=== PATIENT | male | born 1955 ===

== ENCOUNTER 2017-05-27 10:46 | Outpatient (CLI) | payer OTHER ==
[2017-05-27 19:26] LABS: HEMOGLOBIN A1C 0.58 g/dL
[2017-05-27 19:27] LABS: ALBUMIN/GLOBULIN RATIO 1.5 (1.0-2.2); BILIRUBIN,TOTAL 0.7 mg/dL (0.2-1.0); BUN - BLOOD UREA NITROGEN 14 mg/dL (6-20); CALCIUM 9.5 mg/dL (8.5-10.3); CARBON DIOXIDE - CO2 28 mmol/L (21-32); CHLORIDE 103 mmol/L (101-111); CHOL/HDL RATIO 6.1 (<5.0); CHOLESTEROL 206 mg/dL; GFR - MDRD 75 (>89); GLUCOSE 86 mg/dL (70-100); HDL CHOLESTEROL 34 mg/dL; POTASSIUM 3.9 mmol/L (3.5-5.0); SODIUM 140 mmol/L (135-145); TOTAL PROTEIN 7.1 g/dL (6.7-8.2); TRIGLYCERIDES 176 mg/dL; VLDL CHOLESTEROL 35 mg/dL
[2017-05-27 19:42] LABS: BASOPHILS % (AUTO) 0.7 %; EOSINOPHILS # (AUTO) 0.1 10^3/uL (0.0-0.7); EOSINOPHILS % (AUTO) 1.3 %; HCT - HEMATOCRIT 43.6 % (42.0-52.0); HGB - HEMOGLOBIN 14.6 g/dL (14.0-18.0); LYMPHOCYTES # (AUTO) 2.3 10^3/uL (1.5-3.5); LYMPHOCYTES % (AUTO) 36.1 %; MEAN CORPUSCULAR HEMOGLOBIN 31.9 pg (27.0-31.0); MEAN CORPUSCULAR HGB CONC 33.5 g/dL (32.0-36.0); MEAN PLATELET VOLUME 9.5 fL (7.4-11.4); MONOCYTES # (AUTO) 0.4 10^3/uL (0.0-1.0); MONOCYTES % (AUTO) 6.4 %; NEUTROPHILS # (AUTO) 3.5 10^3/uL (1.5-6.6); NEUTROPHILS % (AUTO) 55.5 %; NUCLEATED RED BLOOD CELLS AUTO 0.1 /100WBC; RED BLOOD COUNT 4.59 10^6/uL (4.70-6.10); RED CELL DISTRIBUTION WIDTH 13.1 % (12.0-15.0); UNCORRECTED WHITE BLOOD COUNT 6.3 x10^3/uL; WHITE BLOOD COUNT 6.3 x10^3/uL (4.8-10.8)
[2017-05-27 19:50] LABS: THYROID STIMULATING HORMONE 2.19 uIU/mL (0.34-5.60)
[2017-05-27 22:21] LABS: PLATELET ESTIMATE, MANUAL NORMAL (130-450,000) (NORMAL); PLATELET MORPHOLOGY NORMAL APPEARANCE (NORMAL); WBC MORPHOLOGY (MULTIPLE) NORMAL APPEARANCE (NORMAL)
== END 2017-05-27 10:47 | disposition home or self-care (01) ==
LOC: LAB.F 10:46
PROVIDERS: ATTEND Internal Medicine
DX: R20.2 Paresthesia of skin (principal)
CPT/HCPCS: 36415; 80053; 80061; 82306; 82607; 83036; 84443; 85025

== ENCOUNTER 2018-01-19 10:19 | Outpatient (CLI) | payer BC | END 2018-01-19 10:20 | disposition home or self-care (01) | LOC: SC 10:19 | PROVIDERS: ATTEND Internal Medicine Pulmonary Disease | DX: G47.33 Obstructive sleep apnea (adult) (pediatric) (principal) | CPT/HCPCS: 99212; 99213 ==

== ENCOUNTER 2018-02-13 09:03 | Outpatient (CLI) | payer BC ==
[2018-02-13 18:37] LABS: CHOL/HDL RATIO 6.9 (<5.0); CHOLESTEROL 229 mg/dL; GLUCOSE,FASTING 89 mg/dL (70-100); HDL CHOLESTEROL 33 mg/dL; LDL CHOLESTEROL,CALCULATED 172 mg/dL; LDL/HDL RATIO 5.2 (<3.6); VLDL CHOLESTEROL 24 mg/dL
[2018-02-16 13:31] LABS: HEPATITIS C ANTIBODY NON-REACTIVE (NON-REACTIVE)
== END 2018-02-13 09:04 | disposition home or self-care (01) ==
LOC: LAB.F 09:03
PROVIDERS: ATTEND Internal Medicine
DX: Z00.00 Encounter for general adult medical examination without abnormal findings (principal); E78.5 Hyperlipidemia, unspecified; Z13.1 Encounter for screening for diabetes mellitus
CPT/HCPCS: 36415; 80061; 82947; 83721; 86803

== ENCOUNTER 2018-03-10 07:13 | Outpatient (CLI) | payer BC ==
--- NOTE | 2018-03-11 15:45 | Ultrasound Report ---
AORTA SCREENIN03/10/2018 CLINICAL INDICATION: Screening, smoking history. TECHNIQUE: Real-time sonographic imaging was performed by the breakfast host through the aorta. Multiple outside medical sales representative static images were saved for review. AORTA Proximal: Sagittal plane AP measurement: 2.8 cm Mid: Transverse plane measurements: 2.3 x 2.3 cm Distal: Transverse plane measurements: 1.8 x 1.8 cm ILIACS Rt Iliac: 1.2 x 1.3 cm Lt Iliac: 1.2 x 1.2 cm FINDINGS: The abdominal aorta is normal in caliber, measuring 2.8 cm proximally , 2.3 cm in the midportion, and 1.8 cm distally. The iliacs are normal in caliber. No free fluid is present. IMPRESSION: NO EVIDENCE OF AN ABDOMINAL AORTIC ANEURYSM. MTDD
== END 2018-03-10 07:14 | disposition home or self-care (01) ==
LOC: DI 07:13
PROVIDERS: ATTEND Internal Medicine
DX: Z13.6 Encounter for screening for cardiovascular disorders (principal); Z87.891 Personal history of nicotine dependence; Z76.89 Persons encountering health services in other specified circumstances
CPT/HCPCS: 76706

== ENCOUNTER 2018-04-10 08:38 | Outpatient (CLI) | payer BC ==
[2018-04-10 11:49] LABS: CHOL/HDL RATIO 3.5 (<5.0); CHOLESTEROL 128 mg/dL; HDL CHOLESTEROL 37 mg/dL; LDL CHOLESTEROL,CALCULATED 66 mg/dL; LDL/HDL RATIO 1.8 (<3.6); VLDL CHOLESTEROL 25 mg/dL
== END 2018-04-10 08:39 | disposition home or self-care (01) ==
LOC: LAB.F 08:38
PROVIDERS: ATTEND Internal Medicine
DX: Z00.00 Encounter for general adult medical examination without abnormal findings (principal); J30.9 Allergic rhinitis, unspecified; Q63.2 Ectopic kidney; K21.9 Gastro-esophageal reflux disease without esophagitis; I10 Essential (primary) hypertension; E66.3 Overweight; M25.511 Pain in right shoulder; F33.9 Major depressive disorder, recurrent, unspecified; G47.30 Sleep apnea, unspecified; H93.19 Tinnitus, unspecified ear; D68.0 Von Willebrand disease
CPT/HCPCS: 36415; 80061; 83721

== ENCOUNTER 2019-02-10 08:52 | Outpatient (CLI) | payer BC ==
[2019-02-10 10:51] LABS: CHOL/HDL RATIO 3.8 (<5.0); CHOLESTEROL 118 mg/dL; HDL CHOLESTEROL 31 mg/dL; LDL CHOLESTEROL,CALCULATED 61 mg/dL; VLDL CHOLESTEROL 26 mg/dL
== END 2019-02-10 08:53 | disposition home or self-care (01) ==
LOC: LAB.F 08:52
PROVIDERS: ATTEND Internal Medicine
DX: Z00.00 Encounter for general adult medical examination without abnormal findings (principal); E78.5 Hyperlipidemia, unspecified; Q63.2 Ectopic kidney; K21.9 Gastro-esophageal reflux disease without esophagitis; I10 Essential (primary) hypertension; E66.3 Overweight; M25.511 Pain in right shoulder; F33.9 Major depressive disorder, recurrent, unspecified; G47.30 Sleep apnea, unspecified; H93.19 Tinnitus, unspecified ear; D68.0 Von Willebrand disease
CPT/HCPCS: 36415; 80061; 83721

== ENCOUNTER 2019-03-02 13:13 | Outpatient (CLI) | payer MEDICARE, OTHER | END 2019-03-02 13:14 | disposition home or self-care (01) | LOC: SC 13:13 | PROVIDERS: ATTEND Internal Medicine Pulmonary Disease | DX: G47.33 Obstructive sleep apnea (adult) (pediatric) (principal) | CPT/HCPCS: 99213; G0463; 99212 ==

== ENCOUNTER 2020-03-09 16:31 | Outpatient (CLI) | payer MEDICARE, OTHER ==
--- NOTE | 2020-03-09 16:00 | SLEEP CARE CONSULTATION ---
Information from patient questionnaire entered by Amanda Alvarez. I have reviewed and concur with the information entered by Amanda Alvarez. This document represents the service I personally performed and the decisions made by me, Oksana Chopra, RN, MSN, [employer]. History of Present Illness Service Date and Time: 03/09/2020 1631 Previous diagnosis: Moderate, Obstructive Sleep Apnea-Hypopnea Syndrome AHI: 18 (in 2002) Reason for follow up: annual (last seen 2019) Equipment type: CPAP Equipment obtained from: [facility] (in [place] / gettting supplies as needed) Mask style: Nasal Mask brand: Respironics (Dreamwear) Backup mask available: Yes (old mask) Last cushion change: 6 days ago / changes every 2 weeks CPAP Compliance Data - Data Reviewed with Patient Average duration of nightly device use: 7.45 Compliance rate %: 99 (180 days) Current pressure setting (cmH2O): 8-12 Humidity settin Average residual AHI: 0.5 Average large leak: 2.5 liters per minute Subjective Patient concerns: reports: epistaxis (uses prescriptive nasal spray and occasional scant blood on tissue after blowing nose since recent sinus infection). denies: aerophagia, mask discomfort, air blowing in eyes, mask leak noise, condensation in mask/hose, nasal congestion, dry mouth, nose, throat, other Observed to snore while using device: No Current pressure setting perceived as: comfortable On therapy, patient: reports: sleeping better, more rested overall. denies: drowsiness while driving Initial [place] Sleepiness Scale score: 9 Current [place] Sleepiness Scale score: 8 Allergies and Home Medications Home medication list reviewed: No (started statin ) Physical Exam Height: 5 ft 8 in Weight: 189 lb (home weight) Body Mass Index: 28.7 BMI Classification: Overweight Impression and Plan 1. Obstructive Sleep Apnea-Hypopnea Syndrome, moderate, with good treatment compliance and good apnea control. On CPAP therapy, the patient has better sleep quality and is more rested overall. Since he is not using reservoir I advised to turn off tthe heated plate for the humidity unit. Verbal instructions given and advised his DME could also walk him though it. However, later discussion reflected that he had nasal dryness symptoms and I advised him to restart the humidity on auto and to adjust as needed. Higher humidity can also benefit sinusitis. He is also to discuss continued symptoms from his sinus infection at his next visit scheduled soon as well as his concerns about elevation of his blood pressure noted on home readings later in day. Currently patient does not take blood pressure medications. He is advised to continue to lose weight which will also benefit his hypertension. His goal is 180 pounds. I explained how significant weight loss can affect his apnea risk and CPAP pressure requirements. Current PAP pressure range should accommodate some weight loss. Symptoms to report for additional pressure adjustment discussed. Patient's apnea severity and rationale for treatment to reduce apnea, improve sleep quality and reduce hypertension, cardiovascular and cerebrovascular events was reviewed. * Continue auto CPAP pressure at 8-12 cmH2O * Implement methods to reduce nasal dryness * Notify me if snoring with mask or feeling that the pressure is too much or too little * Continue to lose weight * Call this office if any problems using CPAP * Return for follow up in 1 year , or sooner if concerns arise Visit Type: Telehealth Video (to reduce risk of Covid 19 exposure.) Video Type: [employer] Patient Location: Home Location of Provider: Home Patient agrees and consents to this telehealth visit type: Yes Patient agrees to have their insurance billed: Yes Time Spent with Patient (minutes): 21 Provider Statement: I spent 100% of the Telehealth Video Call with the patient with greater than 50% spent counseling the patient and coordination of care.
== END 2020-03-09 16:32 | disposition home or self-care (01) ==
LOC: SC 16:31
PROVIDERS: ATTEND Nurse Practitioner Family
DX: G47.33 Obstructive sleep apnea (adult) (pediatric) (principal); E66.3 Overweight; Z68.28 Body mass index [BMI] 28.0-28.9, adult

== ENCOUNTER 2020-04-03 15:26 | Outpatient (CLI) | payer MEDICARE, OTHER ==
[2020-04-03 20:23] LABS: CHOL/HDL RATIO 3.8 (<5.0); CHOLESTEROL 132 mg/dL; HDL CHOLESTEROL 35 mg/dL; LDL CHOLESTEROL,CALCULATED 52 mg/dL; LDL/HDL RATIO 1.5 (<3.6); VLDL CHOLESTEROL 45 mg/dL
== END 2020-04-03 15:27 | disposition home or self-care (01) ==
LOC: LAB.S 15:26
PROVIDERS: ATTEND Internal Medicine
DX: J30.9 Allergic rhinitis, unspecified (principal); E78.5 Hyperlipidemia, unspecified; I10 Essential (primary) hypertension; J32.9 Chronic sinusitis, unspecified; G47.30 Sleep apnea, unspecified
CPT/HCPCS: 36415; 80061; 83721

== ENCOUNTER 2021-03-06 15:02 | Outpatient (CLI) | payer MEDICARE, OTHER ==
--- NOTE | 2021-03-06 15:19 | SLEEP CARE CONSULTATION ---
Information from patient questionnaire entered by Amanda Alvarez. I have reviewed and concur with the information entered by Amanda Alvarez. This document represents the service I personally performed and the decisions made by , Mer Brooke ARNP. History of Present Illness Service Date and Time: 03/06/2021 1500 Previous diagnosis: Moderate, Obstructive Sleep Apnea-Hypopnea Syndrome AHI: 18 (in 2002) Reason for follow up: annual (last seen 02/2020) Equipment type: CPAP Equipment obtained from: [facility] (getting supplies as needed) Mask style: Nasal Backup mask available: Yes (old mask) Last cushion change: last friday Prior sleep studies: Yes Year and Where: 2002 - [facility] in [facility] additional information: SHANTAL HERMAN was diagnosed to have moderate, AHI 18, obstructive sleep apnea-hypopnea syndrome and returns via Telehealth visit today for CPAP therapy annual follow-up. CPAP Compliance Data - Data Reviewed with Patient Average duration of nightly device use: 7 hr Compliance rate %: 98 (180 days) Current pressure setting (cmH2O): 8-12 Humidity settin Average residual AHI: 0.5 Subjective Missed days of use due to: reports: other (power outage) Patient concerns: denies: aerophagia, mask discomfort, air blowing in eyes, mask leak noise, condensation in mask/hose, nasal congestion, dry mouth, nose, throat, epistaxis, other Observed to snore while using device: No Current pressure setting perceived as: comfortable On therapy, patient: reports: sleeping better, awakening more refreshed, being more awake and alert during the day, more rested overall. denies: drowsiness while driving Initial [place] Sleepiness Scale score: 9 (in 2009) Current [place] Sleepiness Scale score: 6 Allergies and Home Medications Home medication list reviewed: Yes (no new meds) Review of Systems Review of systems same as previous: Yes (no changes) Physical Exam Vital signs obtained and entered by: Telehealth visit to reduce exposure during Covid pandemic Height: 5 ft 8 in Impression and Plan 1. Obstructive Sleep Apnea-Hypopnea Syndrome, moderate, with good treatment compliance and good apnea control. On CPAP therapy, the patient has better sleep quality and is more rested overall. The patients CPAP is over 5 years old and of reasonable use. Thus, the CPAP will be updated. A DWO prescription will be made. Compliance guidelines for new device and follow up discussed. Patient has significant improvement of his sleep apnea and is satisfied with his treatment. Patient's apnea severity and rationale for treatment to reduce apnea, improve sleep quality and reduce cardiovascular and cerebrovascular events was reviewed. I also reviewed the benefit of consistent device use of CPAP for hypertension. * Continue auto CPAP pressure at 8-12 cmH2O * Update machine and supplies * Notify me if snoring with mask or feeling that the pressure is too much or too little * Attempt to lose weight * Call this office if any problems using CPAP * Return for follow up one month after new machine received, or sooner if concerns arise Counseling Topics: Spare mask, Weight loss health impact Visit Type: Telehealth Video Video Type: VSee Patient Location: Home Location of Provider: Office Patient agrees and consents to this telehealth visit type: Yes Patient agrees to have their insurance billed: Yes Time Spent with Patient (minutes): 17 Provider Statement: I spent 100% of the Telehealth Video Call with the patient with greater than 50% spent counseling the patient and coordination of care.
== END 2021-03-06 15:03 | disposition home or self-care (01) ==
LOC: SC 15:02
PROVIDERS: ATTEND Nurse Practitioner Family
DX: G47.33 Obstructive sleep apnea (adult) (pediatric) (principal)

== ENCOUNTER 2021-04-25 12:25 | Outpatient (CLI) | payer MEDICARE, OTHER ==
[2021-04-25 15:33] LABS: CHOL/HDL RATIO 3.1 (<5.0); CHOLESTEROL 113 mg/dL; HDL CHOLESTEROL 36 mg/dL; LDL CHOLESTEROL,CALCULATED 57 mg/dL; LDL/HDL RATIO 1.6 (<3.6); TRIGLYCERIDES 100 mg/dL; VLDL CHOLESTEROL 20 mg/dL
== END 2021-04-25 12:26 | disposition home or self-care (01) ==
LOC: LAB.S 12:25
PROVIDERS: ATTEND Internal Medicine
DX: E78.5 Hyperlipidemia, unspecified (principal)
CPT/HCPCS: 36415; 80061; 83721

== ENCOUNTER 2021-04-26 11:37 | Outpatient (CLI) | payer MEDICARE, OTHER ==
--- NOTE | 2021-04-26 11:59 | SLEEP CARE CONSULTATION ---
Information from patient questionnaire entered by Amanda Alvarez. I have reviewed and concur with the information entered by Amanda Alvarez. This document represents the service I personally performed and the decisions made by , Mer Brooke ARNP. History of Present Illness Service Date and Time: 04/26/2021 1137 Previous diagnosis: Moderate, Obstructive Sleep Apnea-Hypopnea Syndrome AHI: 18 (in 2002) Reason for follow up: first compliance after device update Equipment type: CPAP Equipment obtained from: [facility] (getting supplies as needed) Mask style: Nasal (N35) Backup mask available: Yes (old mask) Last cushion change: 1 month Prior sleep studies: Yes Year and Where: 2002 - [facility] in [facility] additional information: FLIP HERMAN was diagnosed to have moderate, AHI 18.0, obstructive sleep apnea-hypopnea syndrome and returns via Telehealth today for CPAP therapy first compliance after updating device follow-up. CPAP Compliance Data - Data Reviewed with Patient Average duration of nightly device use: 6 hr 21 min Compliance rate %: 100 Current pressure setting (cmH2O): 8-12 Humidity settin Average residual AHI: 0.4 Subjective Patient concerns: reports: epistaxis (resolved with using humidity but then stopped using it, no reoccurence; using Saline nasal spray). denies: aerophagia, mask discomfort, air blowing in eyes, mask leak noise, condensation in mask/hose, nasal congestion, dry mouth, nose, throat, other Observed to snore while using device: No Current pressure setting perceived as: comfortable On therapy, patient: reports: sleeping better, awakening more refreshed, being more awake and alert during the day, more rested overall. denies: drowsiness while driving Initial [place] Sleepiness Scale score: 9 (in 2009) Current [place] Sleepiness Scale score: 7 Allergies and Home Medications Home medication list reviewed: Yes (baby aspirin) Review of Systems Review of systems same as previous: Yes (no changes) Physical Exam Vital signs obtained and entered by: Telehealth visit, no vitals taken Height: 5 ft 8 in Impression and Plan 1. Obstructive Sleep Apnea-Hypopnea Syndrome, moderate, with good treatment compliance and excellent apnea control. On CPAP therapy, the patient has better sleep quality and is more rested overall. Flip had some issues with nosebleeds when he first started using the machine. He does not usually use the humidifier on the machines. He turned on the humidity on the CPAP to see if that would help. The humidity did seem to help and then he found out it was a medication that he was using in his nose for allergies that was causing his nose to bleed. He stopped using that medication, is using a nasal saline spray to moisturize his nose with good results. He has since turned the humidifier back off and has not been having any dryness or nosebleeds. Patient's apnea severity and rationale for treatment to reduce apnea, improve sleep quality and reduce cardiovascular and cerebrovascular events was reviewed. I also reviewed the benefit of consistent device use of CPAP for hypertension. * Continue auto CPAP pressure at 8-12 cmH2O * Notify me if snoring with mask or feeling that the pressure is too much or too little * Attempt to lose weight * Call this office if any problems using CPAP * Return for follow up in 1 year, or sooner if concerns arise Counseling Topics: Spare mask, Weight loss health impact Visit Type: Telehealth Video Video Type: VSee Patient Location: Home Location of Provider: Office Patient agrees and consents to this telehealth visit type: Yes Patient agrees to have their insurance billed: Yes Time Spent with Patient (minutes): 12 Provider Statement: I spent 100% of the Telehealth Video Call with the patient with greater than 50% spent counseling the patient and coordination of care.
== END 2021-04-26 11:38 | disposition home or self-care (01) ==
LOC: SC 11:37
PROVIDERS: ATTEND Nurse Practitioner Family
DX: G47.33 Obstructive sleep apnea (adult) (pediatric) (principal)

== ENCOUNTER 2022-09-09 11:44 | Outpatient (CLI) | payer MEDICARE ==
[2022-09-09 15:32] LABS: CHOL/HDL RATIO 3.7 (<5.0); CHOLESTEROL 153 mg/dL; HDL CHOLESTEROL 41 mg/dL; LDL CHOLESTEROL,CALCULATED 70 mg/dL; LDL/HDL RATIO 1.7 (<3.6); TRIGLYCERIDES 212 mg/dL; VLDL CHOLESTEROL 42 mg/dL
== END 2022-09-09 11:45 | disposition home or self-care (01) ==
LOC: LAB.S 11:44
PROVIDERS: ATTEND Internal Medicine
DX: E78.5 Hyperlipidemia, unspecified (principal)
CPT/HCPCS: 36415; 80061; 83721

== ENCOUNTER 2023-04-18 12:29 | Outpatient (CLI) | payer MEDICARE ==
[2023-04-18 14:57] LABS: CALCIUM 9.5 mg/dL (8.5-10.3); POTASSIUM 4.1 mmol/L (3.5-5.0)
== END 2023-04-18 12:30 | disposition home or self-care (01) ==
LOC: LAB.S 12:29
PROVIDERS: ATTEND Internal Medicine
DX: U07.1 COVID-19 (principal)
CPT/HCPCS: 36415; 80048

== ENCOUNTER 2023-05-21 11:49 | Emergency (ER) | payer MEDICARE ==
[2023-05-21] MEDS ORDERED: RABIES IMMUNE GLOBULIN 300 UNITS/2 ML IM STA (12:08)
[2023-05-21] MEDS ORDERED: RABIES VACCINE 2.5 UNIT SYRINGE IM ONE (12:08)
--- NOTE | 2023-05-21 12:08 | ED Physician Documentation ---
History of Present Illness - Stated complaint Stated Complaint: RABIES SHOTS - Chief complaint Chief Complaint: General - History obtained from History obtained from: Patient - Additonal information Additional information: He found a bat in his house a few days ago. It was dried up and he put it in a bag with gloves on. They sent it to the health department and testing could not be completed for rabies on the bat so he was advised by the health department to come here for vaccination. PD PAST MEDICAL HISTORY - Allergies Allergies/Adverse Reactions: Allergies Allergy/AdvReac Type Severity Reaction Status Date / Time bee pollen Allergy Anaphylaxis Verified 05/21/23 11:59 silver nitrate Allergy Hives Verified 05/21/23 11:58 PD ED PE NORMAL - Vitals Vital signs reviewed: Yes - General General: Alert and oriented X 3, No acute distress - Neuro Neuro: Alert and oriented X 3, Normal speech Results - Vitals Vitals: Vital Signs - 24 hr 05/21/23 11:56 Temperature 35.9 C L Heart Rate 72 Respiratory 20 Rate Blood Pressure 186/89 H O2 Saturation 97 Oxygen O2 Source Room air PD Medical Decision Making - ED course ED course: 68-year-old gentleman with did bat exposure and advised by the health department to seek immunization. He was ordered 20 units/kg of rabies immunoglobulin and the first vaccine. Departure - Departure Disposition: 01 Home, Self Care Clinical Impression: Exposure to bat without known bite Condition: Good Record reviewed to determine appropriate education?: Yes Instructions: Rabies Immune Globulin human RIG solution for injection, Rabies Vaccine suspension for injection Comments: Return Friday for second dosing of rabies vaccine since it is on a weekend. Subsequent to that Dr. Charles can send an order to our [facility] clinic for dosing next Friday and the Friday thereafter. Forms: Rabies Vaccine Series (MAC)
[2023-05-21 12:57] VITALS: BP 183/92
== END 2023-05-21 12:49 | disposition home or self-care (01) ==
LOC: ED 11:49
DX: Z20.3 Contact with and (suspected) exposure to rabies (principal); Z23 Encounter for immunization
CPT/HCPCS: 90471; 96372; 99281; 99283

== ENCOUNTER 2023-05-24 10:48 | Emergency (ER) | payer MEDICARE ==
[2023-05-24 11:11] VITALS: BP 156/94
--- NOTE | 2023-05-24 11:46 | ED Physician Documentation ---
ED Addendum - Addendum Addendum: 05/24/23 12:14 Here for the second in the series of the rabies vaccine. First seen 2 days ago here. He has appointments in the [facility] clinic coming up this coming Friday in the Friday after for the third and fourth vaccines. To He states he did not have any problems or side effects from the immunoglobulin and vaccine 3 days ago. He is feeling well at this time. He was administered the rabies vaccine here without any problems.
[2023-05-24] MEDS ORDERED: RABIES VACCINE 2.5 UNIT SYRINGE IM ONE (11:59)
== END 2023-05-24 12:20 | disposition home or self-care (01) ==
LOC: ED 10:48
DX: Z23 Encounter for immunization (principal); Z20.3 Contact with and (suspected) exposure to rabies
CPT/HCPCS: 90471

== ENCOUNTER 2023-06-06 16:10 | Outpatient (CLI) | payer MEDICARE ==
--- NOTE | 2023-06-06 11:23 | SLEEP CARE CONSULTATION ---
Information from patient questionnaire entered by William Sethi. I have reviewed and concur with the information entered by William Sethi. This document represents the service I personally performed and the decisions made by me, Mer Brooke ARNP. History of Present Illness Service Date and Time: 06/06/2023 1040 Previous diagnosis: Moderate, Obstructive Sleep Apnea-Hypopnea Syndrome AHI: 18 (in 2002) Reason for follow up: annual (LAST SEEN 05/2022) Equipment type: CPAP (RESMED AirSense 10, s/u 02/2021) Equipment obtained from: [facility] (getting supplies as needed) Mask style: Nasal (AirFit N30i, standard frame system) Mask brand: Resmed Backup mask available: Yes (other mask) Last cushion change: 1 week ago Prior sleep studies: Yes Year and Where: 2002 - [facility] in [facility] additional information: SHANTAL HERMAN was diagnosed to have moderate, AHI 18, obstructive sleep apnea-hypopnea syndrome and returns via video telehealth visit today for CPAP therapy annual follow-up. Sleep Study - Results Prior sleep studies: Yes Year and Where: 2002 - [facility] in [place], [place] CPAP Compliance Data - Data Reviewed with Patient Average duration of nightly device use: 6 HRS 51 MINS Compliance rate %: 99 (12/06/22-06/03/23; 179/180 days used) Current pressure setting (cmH2O): 8-12 Average residual AHI: 1.0 Central apnea: 0.5 Obstructive apnea: 0.3 Average large leak: 0.9 Subjective Missed days of use due to: reports: illness (Covid, sinuses blocked) Patient concerns: denies: aerophagia, mask discomfort, air blowing in eyes, mask leak noise, condensation in mask/hose, nasal congestion, dry mouth, nose, throat, epistaxis Observed to snore while using device: No Current pressure setting perceived as: comfortable On therapy, patient: reports: sleeping better, awakening more refreshed, being more awake and alert during the day, more rested overall. denies: drowsiness while driving Initial [place] Sleepiness Scale score: 9 (in 2009) Current [place] Sleepiness Scale score: 6 (06/06/23) Allergies and Home Medications Known drug allergies: Yes (as listed) Drug allergies reviewed: Yes Home medication list reviewed: Yes (no changes) Allergy and home medication list: Allergies bee pollen Allergy (Verified 06/05/23 14:46) Anaphylaxis silver nitrate Allergy (Verified 06/05/23 14:46) Hives Review of Systems Review of systems same as previous: Yes (rabies shots) Physical Exam Vital signs obtained and entered by: WILLIAM Turcios MA Blood Pressure: 121/72 (PER PT) O2 Saturation: 92 (PER PT) Height: 5 ft 8 in (PER PT) Weight: 195 lb (PER PT) Body Mass Index: 29.6 BMI Classification: Overweight Impression and Plan 1. Obstructive Sleep Apnea-Hypopnea Syndrome, moderate, with good treatment compliance and good apnea control. On CPAP therapy, the patient has better sleep quality and is more rested overall. Patient has significant improvement of their sleep apnea and is satisfied with current CPAP therapy. Patient denies problems with oral dryness, nasal congestion, epistaxis, skin irritation or aerophagia. Patient's apnea severity and rationale for treatment to reduce apnea, improve sleep quality and reduce cardiovascular and cerebrovascular events was reviewed. I also reviewed the benefit of consistent device use of CPAP for hypertension. 2. Overweight, unspecified. Currently patients BMI is 29.6. Obesity increases the risk of apnea, CPAP pressure requirements and overall health risks especially cardiovascular and diabetes. Thus patient is advised to lose weight. * Continue auto CPAP pressure at 8-12 cmH2O * Update supplies * Notify me if snoring with mask or feeling that the pressure is too much or too little * Attempt to lose weight * Call this office if any problems using CPAP * Return for follow up in 1 year, or sooner if concerns arise Counseling Topics: Spare mask, Weight loss health impact Visit Type: Telehealth Video Video Type: [employer] Patient Location: Home Location of Provider: Office Patient agrees and consents to this telehealth visit type: Yes Patient agrees to have their insurance billed: Yes Time Spent with Patient (minutes): 20 Provider Statement: I spent 100% of the Telehealth Video Call with the patient with greater than 50% spent counseling the patient and coordination of care.
[2023-06-06 11:26] VITALS: BP 121/72; O2SAT 92
== END 2023-06-06 16:11 | disposition home or self-care (01) ==
LOC: SC 16:10
PROVIDERS: ATTEND Nurse Practitioner Family
DX: G47.33 Obstructive sleep apnea (adult) (pediatric) (principal); E66.3 Overweight; Z68.29 Body mass index [BMI] 29.0-29.9, adult